=== PATIENT | female | born 1990 ===

== ENCOUNTER 2016-08-20 08:01 | Emergency (ER) | payer OTHER ==
[2016-08-20 08:10] VITALS: BMI 24.8
--- NOTE | 2016-08-20 08:42 | ED PDOC ---
HPI: Abdomen Chief Complaint (Provider): Abdominal pain History Per: Patient History/Exam Limitations: no limitations Onset/Duration Of Symptoms: Days (Pain started yesterday in morning.), Intermittent Episodes Outside of [place] travel?: No Current Symptoms Are (Timing): Other (No pain at this time.) Severity: Moderate Pain Scale Rating Of: 5 Location Of Pain/Discomfort: Other (Lower abdominal pain.) Quality Of Discomfort: Cramping Associated Symptoms: Other (No refers bleeding.). denies: Fever, Chills, Nausea , Vomiting, Back Pain, Chest Pain, Urinary Symptoms Exacerbating Factors: None Alleviating Factors: Rest Additional History Per: Patient Abnormal Vaginal Bleeding: No Last Menstral Period: Not Known. : 1 Para: 0 Miscarriage: 0 <Kyle Ortega - Last Filed: 08/20/16 12:34> <Debi Saldaña - Last Filed: 08/21/16 22:59> Time Seen by Provider: 08/20/16 08:17 Chief Complaint (Nursing): Abdominal Pain Additional Complaint(s): CC: Lower abdominal pain. HPI: 25 yo F patient without past medical history presents to the ED complaining of lower abdominal pain since yesterday in the morning, 06/18, intermittent, no radiated, no aggravating or alleviating symptoms. She denies pain now. Denies vaginal bleeding, fever, vomiting, nausea, urinary difficulties , headache, back pain, no recent injury or trauma. ROS: negative except as above. PMH: none. PSH: none. SH: denies smoking, alcohol or recreational drugs. 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 Meds: none. (Kyle Ortega) Past Medical History Reviewed: Nursing Documentation, Vital Signs - Medical History PMH: No Chronic Diseases - Surgical History Surgical History: No Surg Hx - Family History Family History: States: No Known Family Hx - Living Arrangements Living Arrangements: With Family - Social History Current smoker - smoking cessation education provided: No Alcohol: None Drugs: Denies - Immunization History Hx Tetanus Toxoid Vaccination: No Hx Influenza Vaccination: No Hx Pneumococcal Vaccination: No <Kyle Ortega - Last Filed: 08/20/16 12:34> <Debi Saldaña - Last Filed: 08/21/16 22:59> Vital Signs: Last Vital Signs Temp 97.9 F 08/20/16 12:14 Pulse 66 08/20/16 12:14 Resp 16 08/20/16 12:14 BP 99/60 L 08/20/16 12:14 Pulse Ox 98 08/20/16 12:40 - Home Medications Home Medications: Ambulatory Orders Medication Instructions Recorded Nitrofurantoin Macrocrystals 100 mg PO BID #14 cap 08/20/16 [Macrobid] - Allergies Allergies/Adverse Reactions: Allergies Allergy/AdvReac Type Severity Reaction Status Date / Time No Known Allergies Allergy Verified 08/20/16 08:24 Review of Systems ROS Statement: Except As Marked, All Systems Reviewed And Found Negative Constitutional: Negative for: Fever, Chills, Weakness, Malaise Eyes: Negative for: Pain, Vision Change ENT: Negative for: Ear Pain, Nose Pain, Mouth Pain, Throat Pain Cardiovascular: Negative for: Chest Pain, Palpitations Respiratory: Negative for: Cough, Shortness of Breath Gastrointestinal: Positive for: Abdominal Pain. Negative for: Nausea, Vomiting , Diarrhea Genitourinary Female: Negative for: Dysuria, Frequency, Vaginal Bleeding Musculoskeletal: Negative for: Neck Pain, Back Pain, Leg Pain Skin: Negative for: Rash Neurological: Negative for: Weakness, Numbness, Altered Mental Status Psych: Negative for: Anxiety, Depression <Kyle Ortega - Last Filed: 08/20/16 12:34> Physical Exam - Reviewed Nursing Documentation Reviewed: Yes Vital Signs Reviewed: Yes - Physical Exam Appears: Positive for: Well, No Acute Distress Head Exam: Positive for: ATRAUMATIC, NORMOCEPHALIC Skin: Positive for: Normal Color, Warm, Dry Eye Exam: Positive for: Normal appearance, EOMI, PERRL. Negative for: Nystagmus ENT: Positive for: Normal ENT Inspection Neck: Positive for: Normal, Supple Cardiovascular/Chest: Positive for: Regular Rate, Rhythm. Negative for: Murmur Respiratory: Positive for: Normal Breath Sounds Pulses-Carotid (L): 2+ Pulses-Carotid (R): 2+ Pulses-Dorsalis Pedis (L): 2+ Pulses-Dorsalis Pedis (R): 2+ Pulses-Femoral (L): 2+ Pulses-Femoral (R): 2+ Pulses-Post. Tibialis (L): 2+ Pulses-Post. Tibialis (R): 2+ Pulses-Radial (L): 2+ Pulses-Radial (R): 2+ Gastrointestinal/Abdominal: Positive for: Normal Exam, Bowel Sounds, Soft. Negative for: Tenderness Back: Positive for: Normal Inspection Extremity: Positive for: Normal ROM. Negative for: Tenderness, Pedal Edema Neurologic/Psych: Positive for: Alert, facility sales and admin II-XII, Oriented <Kyle Ortega - Last Filed: 08/20/16 12:34> - Laboratory Results Result Diagrams: 08/20/16 08:51 08/20/16 08:51 - ECG O2 Sat by Pulse Oximetry: 98 <Kyle Ortega - Last Filed: 08/20/16 12:34> - Laboratory Results Result Diagrams: 08/20/16 08:51 08/20/16 08:51 <Debi Saldaña - Last Filed: 08/21/16 22:59> - Progress ED Course And Treament: Impression: Lower abdominal pain. . Plan: CBC w/ diff CMP. URINALYSIS. Type and screen. Beta HCG, quantitative. Urine bacterial culture. US, obstetric. Reevaluated. (Kyle Ortega) Medical Decision Making <Kyle Ortega - Last Filed: 08/20/16 12:34> <Debi Saldaña - Last Filed: 08/21/16 22:59> Medical Decision Making: Impression: 25 yo F patient complaining of lower abdominal pain. Plan: CBC w/ Diff: WNL except Hgb- 11.9 CMP: WNL Urinalysis: positive for leukocyte esterase, RBC and large amount of squamous epith cells. Urine culture. Type and screen: A+, Ab negative. Beta HCG, quantitative. US, Obstetric: single intrauterine gestation of 20 weeks 4 days, no evidence of placenta previa, cervix long and close. Reevaluated. 1236: Patients feels good, no refers pain at this time. Labs consistent with UTI. Will discharge with treatment at home. (Kyle Ortega) pt also instructed to take vitamins (Debi Saldaña) Disposition - Patient ED Disposition Is Patient to be Admitted: No Counseled Patient/Family Regarding: Studies Performed, Diagnosis, Need For Followup, Rx Given - Disposition Disposition: Routine/Home Disposition Time: 12:39 <Kyle Ortega - Last Filed: 08/20/16 12:34> <Debi Saldaña - Last Filed: 08/21/16 22:59> - Clinical Impression Clinical Impression: UTI in - Disposition Referrals: [facility] [Outside] [facility] [Outside] Condition: IMPROVED Additional Instructions: follow up with your primary broke worker in 1-2 days return to the ED with any worsening or concerning symptoms. Prescriptions: Nitrofurantoin Macrocrystals [Macrobid] 100 mg PO BID #14 cap Instructions: Urinary Tract Infection in (ED) Print Language: MALAGASY
[2016-08-20 09:17] LABS: ALB/GLOB RATIO 1.2 (1.0-2.1); ALBUMIN 3.7 g/dL (3.5-5.0); ALT/SGPT 30 U/L (9-52); AST/SGOT 14 U/L (14-36); BLOOD UREA NITROGEN 10 mg/dl (7-17); GFR AFRICAN-AMERICAN > 60; GFR NON-AFRICAN AMERICAN > 60
[2016-08-20 09:27] LABS: SQUAMOUS EPITHIAL 20 /hpf (0-5); URINE BACTERIA RARE (<OCC); URINE BILIRUBIN NEGATIVE (NEGATIVE); URINE BLOOD NEGATIVE (NEGATIVE); URINE CLARITY CLOUDY (Clear); URINE COLOR YELLOW (YELLOW); URINE GLUCOSE (UA) NEG (Normal); URINE LEUKOCYTE ESTERASE LARGE Leu/uL (Negative); URINE NITRATE NEGATIVE (NEGATIVE); URINE PROTEIN NEGATIVE (NEGATIVE); URINE UROBILINOGEN 0.2-1.0 mg/dL (0.2-1.0)
[2016-08-20 09:30] LABS: BASO % 0.3 % (0.0-2.0); EOS # 0.1 K/uL (0.0-0.7); EOS % 1.6 % (0.0-4.0); HEMOGLOBIN 11.9 g/dL (12.0-16.0); LYMPH # 1.4 K/uL (1.0-4.3); LYMPH % 21.5 % (20.0-40.0); MEAN CELL VOLUME 87.6 fl (81.0-99.0); MEAN CORPUSCULAR HEMOGLOBIN 30.4 pg (27.0-31.0); MEAN CORPUSCULAR HGB CONC 34.7 g/dL (33.0-37.0); MEAN PLATELET VOLUME 8.3 fl (7.2-11.7); MONO # 0.4 K/uL (0.0-0.8); MONO % 5.7 % (0.0-10.0); NEUT # 4.6 K/uL (1.8-7.0); NEUT % 70.9 % (50.0-75.0); NRBC % 0.1 % (0.0-0.0); RBC 3.91 Mil/uL (3.80-5.20); RED CELL DISTRIBUTION WIDTH 13.9 % (11.5-14.5); WHITE BLOOD COUNT 6.4 K/uL (4.8-10.8)
--- NOTE | 2016-08-20 11:00 | US ---
PROCEDURE: Obstetrical ultrasound examination HISTORY: abd pain COMPARISON: Not available TECHNIQUE: Transabdominal FINDINGS: The examination demonstrates a single live intrauterine gestation. presentation is not specified. cardiac activity observed. heart rate 148 beats per minute. Normal posterior placenta identified. No evidence of placenta previa. Cervix closed and measures 4.3 cm in length. biometry yields a ultrasound age of 20 weeks 4 days. MICHAEL by ultrasound examination is 01/03/2017. No evaluation of anatomy was made at this time. Neither the right nor the left ovary are visualized. No adnexal masses are seen. There is no free fluid in the cul-de-sac. IMPRESSION: Single live intrauterine gestation of approximately 20 weeks 4 days gestational age. Posterior placenta. No evidence of placenta previa. Cervix long and closed. heart rate 148 beats per minute. Ovaries not visualized.
[2016-08-20 12:21] VITALS: BP 99/60; PULSE 66; RESP 16; TEMP 97.9
[2016-08-20 12:39] VITALS: O2SAT 98
== END 2016-08-20 12:30 | disposition home or self-care (01) ==
LOC: H.ER 08:01
DX: O23.42 Unspecified infection of urinary tract in pregnancy, second trimester (principal); Z3A.20 20 weeks gestation of pregnancy

== ENCOUNTER 2017-01-06 08:20 | Inpatient (IN) | payer MEDICAID, SELFPAY ==
[2017-01-06 08:47] VITALS: BMI 34.2
[2017-01-06] MEDS ORDERED: Lactated Ringer's 1,000 ML IV SCH (09:30)
[2017-01-06 09:46] LABS: BASO % 0.1 % (0.0-2.0); EOS # 0.1 K/uL (0.0-0.7); EOS % 1.1 % (0.0-4.0); HEMATOCRIT 36.1 % (34.0-47.0); LYMPH # 1.3 K/uL (1.0-4.3); LYMPH % 18.4 % (20.0-40.0); MEAN CELL VOLUME 82.3 fl (81.0-99.0); MEAN CORPUSCULAR HEMOGLOBIN 27.8 pg (27.0-31.0); MEAN CORPUSCULAR HGB CONC 33.7 g/dL (33.0-37.0); MEAN PLATELET VOLUME 8.2 fl (7.2-11.7); MONO # 0.4 K/uL (0.0-0.8); MONO % 6.2 % (0.0-10.0); NEUT # 5.4 K/uL (1.8-7.0); NEUT % 74.2 % (50.0-75.0); NRBC % 0.1 % (0.0-0.0); RED CELL DISTRIBUTION WIDTH 15.1 % (11.5-14.5); WHITE BLOOD COUNT 7.3 K/uL (4.8-10.8)
--- NOTE | 2017-01-06 17:23 | OBHP ---
Datetime: 01/06/2017 08:40 IP Adm Impression: Term, intrauterine ; No Active Labor; Ruptured Membranes IP Admit Plan: Admit to unit; Initiate labor induction protocol Admit Comment, IP Provider: 26 yr at 40.3 wks GA presents to L_D with complaint of rupture of m embranes when she was going to get out of bed today at 7:45am. Patient reports getting regular prenat al care at [facility], denies any complications with this . All ultrasounds were within marialuisa l limits. labs: + chlamydia in 2nd trimester, HepB neg, 3rd tri labs HIV neg, RPR neg, Gc/Ch neg/ne g, PPD neg, received Influenza and Tdap vaccine, GBS neg ObHx: started care at 23wks GA PMHx: none SurgHx: none FMHx: non contributory SocHx: denies smokiing, drinking or drugs Meds: none Allergies: NKDA PE: patient in no acute distress HEENT: normocephalic, atraumatic Cardiac: normal S1 S2, no murmurs/rubs or gallops Lungs: normal breathing pattern, clear to auscultation bilaterally Abd: nontender, nondistended Ext: +1 bilateral pitting edema SVE: cervix fingertip, station -3, pooling of clear membranes Monitoring: FHR 135 bpm, moderate variability 6-25 bpm, accelerations 15x15, no deceleration s A: 26 yr at 40.3 wks GA with clear ruptured membranes P: -Admit to labor and delivery -IV insertion, CBC, Type and screen -continuous monitoring -labor monitoring -patient may have breakfast, shower and ambulate Patient seen with Dr. Oakley, case discussed Genoveva Hill M.D. PGY2 OB Hospistlaist on-call...With PGY2, I saw and examined this patinet. IOL, pain managemnt, labor, delivey and care discussed with pt. Translators present. Her questions answered. MAHNDO Pelvic Type - PN: Adequate Extremities - PN: Normal Abdomen - PN: Normal Back - PN: Normal Lungs - PN: Normal Heart - PN: Normal Thyroid - PN: Normal Neurologic - PN: Normal HEENT - PN: Normal General - PN: Normal Presentation-Admit: Vertex FHR - Baseline A Provider: 135 Amniotic Fluid Color, Provider: Clear Membranes, Provider: Ruptured Gestation - Est Wks by US: 40.3 Pool Provider: Positive IP Hx Assessment: The History has been Reviewed and is Current Vital Signs Provider: Reviewed IP Indication for Induction: Not Applicable IP Chief Complaint: Uterine contractions; Suspected ruptured membranes NICHD Variability Prov Fetus A: Moderate 6-25bpm NICHD Accel Fetus A IP Provider: 15X15 FHR Category Provider Fetus A: Category I NICHD Decel Fetus A IP Provider: None Dilatation, Provider: fingertip Station, Provider: -3 Genitourinary Exam: Normal DTRs - PN: Normal
--- NOTE | 2017-01-06 17:26 | OBADHP ---
Datetime: 01/06/2017 08:40 Admit Comment, IP Provider: 26 yr at 40.3 wks GA presents to L_D with complaint of rupture of m embranes when she was going to get out of bed today at 7:45am. Patient reports getting regular prenat al care at [facility], denies any complications with this . All ultrasounds were within marialuisa l limits. labs: + chlamydia in 2nd trimester, HepB neg, 3rd tri labs HIV neg, RPR neg, Gc/Ch neg/ne g, PPD neg, received Influenza and Tdap vaccine, GBS neg ObHx: started care at 23wks GA PMHx: none SurgHx: none FMHx: non contributory SocHx: denies smokiing, drinking or drugs Meds: none Allergies: NKDA PE: patient in no acute distress HEENT: normocephalic, atraumatic Cardiac: normal S1 S2, no murmurs/rubs or gallops Lungs: normal breathing pattern, clear to auscultation bilaterally Abd: nontender, nondistended Ext: +1 bilateral pitting edema SVE: cervix fingertip, station -3, pooling of clear membranes Monitoring: FHR 135 bpm, moderate variability 6-25 bpm, accelerations 15x15, no deceleration s A: 26 yr at 40.3 wks GA with clear ruptured membranes P: -Admit to labor and delivery -IV insertion, CBC, Type and screen -continuous monitoring -labor monitoring -patient may have breakfast, shower and ambulate Patient seen with Dr. Oakley, case discussed Genoveva Hill M.D. PGY2 OB Hospistlaist on-call...With PGY2, I saw and examined this patinet. IOL, pain managemnt, labor, delivey and care discussed with pt. Translators present. Her questions answered. MAHNDO Pelvic Type - PN: Adequate Extremities - PN: Normal Abdomen - PN: Normal Back - PN: Normal Lungs - PN: Normal Heart - PN: Normal Thyroid - PN: Normal Neurologic - PN: Normal HEENT - PN: Normal General - PN: Normal Presentation-Admit: Vertex FHR - Baseline A Provider: 135 Amniotic Fluid Color, Provider: Clear Membranes, Provider: Ruptured Gestation - Est Wks by US: 40.3 Pool Provider: Positive IP Hx Assessment: The History has been Reviewed and is Current Vital Signs Provider: Reviewed IP Chief Complaint: Uterine contractions; Suspected ruptured membranes NICHD Variability Prov Fetus A: Moderate 6-25bpm NICHD Accel Fetus A IP Provider: 15X15 FHR Category Provider Fetus A: Category I NICHD Decel Fetus A IP Provider: None Dilatation, Provider: fingertip Station, Provider: -3 Genitourinary Exam: Normal DTRs - PN: Normal IP Adm Impression: Term, intrauterine ; No Active Labor; Ruptured Membranes IP Admit Plan: Admit to unit; Initiate labor induction protocol
[2017-01-06] MEDS ORDERED: Nalbuphine 20 mg/ml Inj (1 ml) IVP PRN (20:06)
[2017-01-07] MEDS ORDERED: Oxytocin 30 UNITS in Sodium Chloride 0.9% 500 ML IV ONE (09:31)
[2017-01-07] MEDS: Lactated Ringer's 1,000 ML IV SCH ×2 (09:43→18:14)
[2017-01-07] MEDS ORDERED: Lactated Ringer's 1,000 ML IV SCH (09:45)
[2017-01-08] MEDS ORDERED: ceFAZolin IV 1 gm in Dextrose 1 GM/50 ML BAG IVPB ONE (00:42)
[2017-01-08] MEDS ORDERED: Oxytocin 30 UNITS in Sodium Chloride 0.9% 500 ML IV ONE ×2 (00:47→09:22)
[2017-01-08] MEDS ORDERED: ceFAZolin IV 2 gm in Dextrose 2 GM/50 ML BAG IVPB ONE ×2 (00:53→09:45)
--- NOTE | 2017-01-08 00:56 | OBPN ---
Datetime: 01/07/2017 20:03 IP Progress Note Comment: Patient noted to make no cervical change the patient was advised for opera tive delivery patient declined patient wanted to think about it. We discussed risks benefits and alte rnatives to surgery the patient was informed of the risk of bleeding infection or injury to bowel beth dder or ureter and blood transfusion. The patient was informed of the risk to the baby shoulder dysto magy neurological injury potentially . Patient opted for further observation Dilatation, Provider: 5 Effacement, Provider: 75 Station, Provider: -2 Datetime: 01/07/2017 07:59 IP Progress Impression: Normal progression of labor IP Progress Plan: Continue present management FHR - Baseline A Provider: 125 Vital Signs Provider: Reviewed; Within Normal Limits NICHD Accel Fetus A IP Provider: 15X15 FHR Category Provider Fetus A: Category I NICHD Variability Prov Fetus A: Moderate 6-25bpm Datetime: 01/06/2017 08:40 Pool Provider: Positive Membranes, Provider: Ruptured Amniotic Fluid Color, Provider: Clear Gestation - Est Wks by US: 40.3 Presentation-Admit: Vertex NICHD Decel Fetus A IP Provider: None
--- NOTE | 2017-01-08 01:14 | OBPN ---
Datetime: 01/08/2017 00:56 IP Progress Note Comment: Patient examined cervical exam unchanged patient currently 5 cm 75 per per cent effaced -2 discussed the need for operative delivery discussed risks benefits alternatives to th e surgery discussed the risk of bleeding infection organ injury to bowel bladder or ureter. The nat montes was informed of the risks of the fetus shoulder dystocia neurological injury . Patient kumar t would like to wait for family members sisters to arrive
--- NOTE | 2017-01-08 01:41 | OBPN ---
Datetime: 01/08/2017 01:23 IP Progress Note Comment: Discussed plan of care with patient and partner of her sisters and Jess. T he patient was advised for operative delivery the patient was informed of the risks benefits and alte rnatives of the surgery the patient was informed of the risks to the baby including shoulder dystocia neurological injury . Patient declined operative intervention patient consulted with her family and after approximately 1 hour of deliberation patient declined medical treatment. The patient expre ssed understanding and was given the opportunity ask questions and all questions are answered patient 's wishes respected. The patient signed a refusal of care
[2017-01-08] MEDS: Lactated Ringer's 1,000 ML IV SCH (06:11)
[2017-01-08] MEDS ORDERED: Oxycodone/Acetaminophen 5/325 mg Tab PO PRN ×3 (10:11→14:44)
--- NOTE | 2017-01-08 10:14 | OBPN ---
Datetime: 01/08/2017 10:10 IP Progress Impression: Arrest of dilatation/descent IP Informed Consent Obtain: Section Delivery; Risks, Benefits and Alternatives Discussed IP Procedures: Sterile Vag Exam IP Progress Plan: Deliver- Section Contraction Comments Provider: q5-6min FHR - Baseline A Provider: 130s IP Progress Note Comment: Patient with no cervical change. Discussed with patient options. Recommend ed delivery due to arrest of dilatation as well as prolonged rupture of membranes. Discusse d with patient the risks, benefits, alternatives of . QUESTIONS answered, and patient consen mary kate for delivery. Maternal well-being and well-being reassuring at this time. Anesthe anjelica notified. Vital Signs Provider: Reviewed; Within Normal Limits NICHD Accel Fetus A IP Provider: 15X15 FHR Category Provider Fetus A: Category I NICHD Variability Prov Fetus A: Moderate 6-25bpm Dilatation, Provider: 5 Effacement, Provider: 90 Station, Provider: -1 NICHD Decel Fetus A IP Provider: None
[2017-01-08] MEDS ORDERED: ePHEDrine 50 mg/ml Inj ONE (10:17)
[2017-01-08] MEDS ORDERED: Morphine 1 mg/ml preservative-free Inj(Duramorph) ONE (10:17)
[2017-01-08] MEDS ORDERED: Phenylephrine 10 mg/ml Inj ONE (10:18)
[2017-01-08] MEDS ORDERED: Lactated Ringer's 1,000 ML IV SCH (14:44)
[2017-01-09] MEDS: Oxycodone/Acetaminophen 5/325 mg Tab PO PRN ×2 (06:02→14:25)
--- NOTE | 2017-01-09 07:15 | OBPPN ---
Datetime: 01/09/2017 06:34 PP Pain Prov: Within normal limits PP Nausea Prov: Denies PP Flatus Prov: No PP BM Prov: No PP Heart Prov: Normal PP Lungs Prov: Normal PP Abdomen/Uterus Prov: Normal PP Lochia Prov: Normal PP Vulva/Perineum Prov: Normal PP Extremities Prov: Normal PP Progress Prov: Normal PP Comments Phys Exam Prov: Dressing is clean and dry PP Impression Prov: Normal progression PP Plan Prov: Continue present management PP Progress Note Prov: POD1 S: pt seen and examined bedside this AM, comfortable in bed. s/p . No complains or acute event overnight. Pt admits pain. Pt is not yet ambulating. will advance diet to regular this AM. Loc hia wnl, like menses. No BM or passing gas. Patient is . Will remove Griffiths this m orning. Denies fever, chills, headache, chest pain, dyspnea, palpitations, n/v/d/c and remains afebri le. O: VS stable GEN: AA, NAD Cardio: S1S2 no M/G/R Resp: vesicular breathing b/l Abdomen: Dressing looks clean and dry Fundus @ the umbilicus and firm. BS- Neuro: AAO x 3 Ext: no edema noted, no calf tenderness Assessment/Plan: 26 y/o Femal, , delivered at 40.3 wks, female infant via on 01/08/17. Doing well POD 1. OOB with caution Encouraged ambulation and SCD's for DVT prophylaxis Percocet 5/325mg 1-2 tablets po q6 for mod/sev pain Ibuprofen for mild-mod pain Senakot 17.2mg PO qHS Will remove dressing this afternoon, d/c griffiths Will follow up post op CBC today --- Jamila Chiu, PGY-1 OB Hospitalist Addendum: Pt seen and examined by me. Agree w/ above. POD 1 s/p primary c/s for arrest of dilation, doing well, breast and bottle feeding. Incision w/ clean, dry bandage in place. (ES) IP PP Procedures: None Vital Signs Provider PP: Reviewed; Within Normal Limits
[2017-01-09 07:36] LABS: BASO % 0.2 % (0.0-2.0); EOS % 0.3 % (0.0-4.0); HEMATOCRIT 32.8 % (34.0-47.0); LYMPH # 0.9 K/uL (1.0-4.3); LYMPH % 9.6 % (20.0-40.0); MEAN CELL VOLUME 83.1 fl (81.0-99.0); MEAN CORPUSCULAR HEMOGLOBIN 27.9 pg (27.0-31.0); MEAN CORPUSCULAR HGB CONC 33.6 g/dL (33.0-37.0); MEAN PLATELET VOLUME 7.8 fl (7.2-11.7); MONO # 0.5 K/uL (0.0-0.8); MONO % 5.1 % (0.0-10.0); NEUT # 8.2 K/uL (1.8-7.0); NEUT % 84.8 % (50.0-75.0); PLATELET COUNT 186 K/uL (130-400); RED CELL DISTRIBUTION WIDTH 15.3 % (11.5-14.5); WHITE BLOOD COUNT 9.7 K/uL (4.8-10.8)
--- NOTE | 2017-01-09 08:40 | OBDS ---
DELIVERY PERSONNEL Delivery Doctor: David Mendez MD Senior Master Scheduler: Karina Spangler RN Anesthesiologist: Dr Andrews Resident: Dr Davian Pop MATERNAL INFORMATION Delivery Anesthesia: Spinal Medications in Delivery: Pitocin, Ancef Estimated Blood Loss (ml): 800 Placenta Cultured: No Maternal Complications: None RN Comments: pt delivered viable infant girl via primary c section, secondary to arrest of dilatatio n. infant was clamped and brought to warmer, examined by Dr Green. apgars were 9 and 9. infant brought to mother for bonding. remained ni stable condition. patient tolerated section well. transferred to labor and delivery to recover in stable condition. Provider Comments: Primary low flap transverse section via Pfannenstiel incision. A viable infant with Apgars of 9 and 9 at one and 5 minutes respectively. Placenta delivered spontaneously. No rmal uterus, normal tubes and ovaries bilaterally. Estimated blood loss 800 mL Urine output 200 mL of clear urine Fluids 1200 mL lactated Ringer's No complications LABOR SUMMARY EDC: 01/03/2017 00:00 No. Babies in Womb: 1 Attempted: No Labor Anesthesia: None LABOR INFORMATION Reason for Induction: Not Applicable Onset of Labor: 01/07/2017 08:00 Cervical Ripening Agents: Cytotec @ Oxytocin: Augmentation Group B Beta Strep: Negative Steroids Given: None Reason Steroids Not Administered: Not Applicable MEMBRANES Membranes Rupture Method: Spontaneous Rupture of Membranes: 01/06/2017 08:00 Length of Rupture (hrs): 50.78 Amniotic Fluid Color: Clear Amniotic Fluid Amount: Moderate Amniotic Fluid Odor: Normal STAGES OF LABOR Stage 3 hrs: 0 Stage 3 min: 2 Total Time in Labor hrs: 26 Total Time in Labor min: 49 CSECTION DELIVERY Primary Indication: Secondary Arrest of Dilatation CSection Urgency: Non Elective CSection Incidence: Primary Labor: Labor Elective: Nonelective CSection Incision: Lower Uterine Transverse Uterine Closure: Single-layer closure BABY A INFORMATION Delivery Date/Time: 01/08/2017 10:47 Method of Delivery: Born in Route : No : N/A Forceps: N/A Vacuum Extraction: N/A Shoulder Dystocia : No SHOULDER DYSTOCIA BABY A Infant Delivery Date/Time: 01/08/2017 10:47 PRESENTATION/POSITION BABY A Presentation: Cephalic PLACENTA INFORMATION BABY A Placenta Delivery Time : 01/08/2017 10:49 Placenta Method of Delivery: Manual Removal Placenta Status: Delivered SCORES BABY A Heart Rate 1 min: >100 bpm Resp Effort 1 min: Good Cry Reflex Irritability 1 min: Cough or Sneeze or Pulls Away Muscle Tone 1 min: Active Motion Color 1 min: Body [place], Extremities Blue Resuscitation Effort 1 min: N/A SCORE 1 MIN: 9 Heart Rate 5 min: >100 bpm Resp Effort 5 min: Good Cry Reflex Irritability 5 min: Cough or Sneeze or Pulls Away Muscle Tone 5 min: Active Motion Color 5 min: Body [place], Extremities Blue Resuscitation Effort 5 min: N/A SCORE 5 MIN: 9 INFANT INFORMATION BABY A Gestational Age at Delivery: 40.5 Gestational Status: Term Outcome : Liveborn Infant Condition : Stable Sex: Female IDENTIFICATION/MEDS BABY A ID Band Number: [id number] ID Band Location: Left Leg; Left Arm WEIGHT/LENGTH BABY A Birthweight (gms): 4100 Weight (lb): 9 Weight (oz): 1 CORD INFORMATION BABY A No. Cord Vessels: 3 Nuchal Cord : Around Neck x2, Loose Cord Blood Taken: Yes Suction: Mouth
[2017-01-09] MEDS: Multivitamin With Minerals Tab PO SCH (08:56)
[2017-01-09] MEDS ORDERED: Multivitamin With Minerals Tab PO SCH (09:00)
[2017-01-09 14:27] LABS: EOSINOPHIL 1 % (0-7); NEUTROPHIL 83 % (42-75); TOTAL CELLS COUNTED 100
[2017-01-09 14:28] LABS: LARGE PLATELETS PRESENT
[2017-01-10] MEDS: Multivitamin With Minerals Tab PO SCH (08:47)
--- NOTE | 2017-01-10 09:50 | OBPPN ---
Datetime: 01/10/2017 07:05 PP Pain Prov: Within normal limits PP Nausea Prov: Denies PP Flatus Prov: Yes PP BM Prov: No PP Heart Prov: Normal PP Lungs Prov: Normal PP Abdomen/Uterus Prov: Normal PP Lochia Prov: Normal PP Extremities Prov: Normal PP Progress Prov: Normal PP Comments Phys Exam Prov: Incision: clean, dry and intact. no induration, erythema or fluctuation. no dehiscence PP Impression Prov: Normal progression PP Plan Prov: Continue present management PP Progress Note Prov: POD2 S: pt seen and examined bedside this morning. S/p on POD 2. No acute event overnight. Pt reports mild pelvic pain, controlled with pain meds. Pt is ambulating w/o dizziness. Tolerating PO . Lochia wnl, like menses. No BM but passing gas. Patient is doing both /bottle feeding . Denies headache, dizziness, nausea, vomiting, fever, chills,chest pain, dyspnea or calf pain. PE: General: A_O, resting comfortably in bed, NAD HEENT: oral mucosa moist. supple neck. Lungs: CTA B/L, no wheezing, rhonchi or rales CVS: RRR, normal S1, S2. ABD: +BS, non-tender, non-rebound tenderness Incision: clean, dry and intact. no induration, erythema or fluctuation. no dehiscence Back: No CVA tenderness EXT: no edema, negative Fifi's sign Neuro/psych: AAOX3 Assessment/Plan: 26 y/o , delivered at 40.3 wks, female via on 01/08/17. Doing well POD2. Encouraged ambulation and SCD's for DVT prophylaxis Percocet 5/325mg 1-2 tablets po q6 for mod/sev pain Ibuprofen for mild-mod pain Senakot 17.2mg PO qHS Anticipate discharge tomorrow. Sultan Davey, PGY-1 OB Hospitalist on-call : On rounds this morning, I saw and examined this patient. Agree with note . TONY Vital Signs Provider PP: Reviewed
[2017-01-11] MEDS ORDERED: Clindamycin 600mg/50ml NS 600 MG/50 ML BAG IVPB SCH (07:00)
--- NOTE | 2017-01-11 07:26 | OBPPN ---
Datetime: 01/11/2017 07:10 PP Progress Note Prov: LAte entry for last night 20:00pm On Jan 10, 18:00pm, I was notified by Dr Montalvo that Aditi had Temp 101 for which Motrin was gi vne at 16:00pm. Afterwards, Temp retaken and was 99. She was seen and examined - no signs/symptoms of infection. PLAN: monitor temp/signs of infectoin. She had C/S for failed progression - SROM > 24h.
--- NOTE | 2017-01-11 08:31 | OBPPN ---
Datetime: 01/11/2017 08:24 PP Pain Prov: Within normal limits PP Nausea Prov: Denies PP Flatus Prov: Yes PP BM Prov: Yes PP Abdomen/Uterus Prov: Normal PP Lochia Prov: Normal PP Extremities Prov: Normal PP C/S Incision Prov: Normal PP Progress Prov: Normal PP Impression Prov: Normal progression PP Progress Note Prov: POD 3s/p primary c/s for arrest of dilation, doing well, breast and bottle fe eding Pt may be discharged home later today if afebrile for 24 hours Vital Signs Provider PP: Reviewed
[2017-01-11] MEDS: Multivitamin With Minerals Tab PO SCH (09:45)
--- NOTE | 2017-01-11 16:27 | OBDCSUM ---
Datetime: 01/11/2017 11:04 Discharged to, Provider: Home Follow up at, Provider: OB Disch Instr Activity: Normal activity; May be up to bathroom; May be up for meals; May Shower Disch Instr Diet: Regular Discharge Instructions, Provider: Routine instructions given Discharge Diagnosis, Provider: Term Delivered Discharge Time: 01/11/2017 11:04 Follow up in weeks, Provider: 1 week incision check , 6 weeks check Disch Referrals: None Contraception discussed, Prov: No Disch Activity Restrictions: No lifting; Minimize stair-climbing; No sexual activity; Nothing in vag osvaldo - [place], tampons, douche
[2017-01-11 21:54] VITALS: BP 114/70; PULSE 105; RESP 20; TEMP 97.6; O2SAT 98
== END 2017-01-11 17:15 | disposition home or self-care (01) | DRG 371 ==
LOC: H.EROB2 08:20 → H.L&D 09:28 → H.OB/GYN 01-08 16:08
PROVIDERS: ADMIT Obstetrics & Gynecology; ATTEND Obstetrics & Gynecology
PROC: 4A1HXCZ Monitoring of Products of Conception, Cardiac Rate, External Approach (ICD-10-PCS; 2017-01-06)
PROC: 10D00Z1 Extraction of Products of Conception, Low, Open Approach (ICD-10-PCS; principal; 2017-01-08)
DX: O69.81X0 Labor and delivery complicated by cord around neck, without compression, not applicable or unspecified (principal); O42.92 Full-term premature rupture of membranes, unspecified as to length of time between rupture and onset of labor; Z37.0 Single live birth; O62.0 Primary inadequate contractions; O62.1 Secondary uterine inertia; O66.0 Obstructed labor due to shoulder dystocia; Z3A.40 40 weeks gestation of pregnancy

== ENCOUNTER 2017-01-15 19:52 | Inpatient (IN) | payer SELFPAY ==
[2017-01-15 19:52] VITALS: BMI 34.2
--- NOTE | 2017-01-15 20:52 | ED PDOC ---
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 [facility] and she states yesterday there was no drainage. Patient states that today she noticed yellow drainage from the wound. She denies fever or chills. Patient does have mild pain to the affected area. Patient is currently breast-feeding but is supplementing with formula. Past Medical History Reviewed: Historical Data, Nursing Documentation, Vital Signs Vital Signs: Last Vital Signs Temp 98.0 F 01/15/17 20:05 Pulse 85 01/15/17 20:05 Resp 16 01/15/17 20:05 BP 117/77 01/15/17 20:05 Pulse Ox 100 01/15/17 21:20 - Medical History PMH: No Chronic Diseases - Surgical History Surgical History: - Family History Family History: States: No Known Family Hx - Living Arrangements Living Arrangements: With Family - Social History Current smoker - smoking cessation education provided: No Alcohol: None Drugs: Denies - Home Medications Home Medications: Ambulatory Orders Medication Instructions Recorded Ibuprofen [Motrin Tab] 600 mg PO Q6 PRN #30 tab 01/11/17 Sennosides A and B [Senokot Tab] 17.2 mg PO HS #20 tab 01/11/17 oxyCODONE/Acetaminophen [Percocet 1 ea PO Q6 PRN #15 tab 01/11/17 5/325 mg Tab] - Allergies Allergies/Adverse Reactions: Allergies Allergy/AdvReac Type Severity Reaction Status Date / Time No Known Allergies Allergy Verified 01/15/17 20:05 Review of Systems ROS Statement: Except As Marked, All Systems Reviewed And Found Negative Constitutional: Negative for: Fever, Chills Gastrointestinal: Positive for: Abdominal Pain Genitourinary Female: Positive for: Other (drainage from incision) Physical Exam - Reviewed Nursing Documentation Reviewed: Yes Vital Signs Reviewed: Yes - Physical Exam Appears: Positive for: Well Skin: Negative for: Rash Eye Exam: Positive for: Normal appearance Cardiovascular/Chest: Positive for: Regular Rate, Rhythm Respiratory: Positive for: Normal Breath Sounds Gastrointestinal/Abdominal: Positive for: Other (Yellow drainage noted from C- section incision, Steri-Strips are in place, there is erythema and warmth surrounding the surgical wound is noted with mild tenderness, no rebound or guarding) Back: Negative for: L CVA Tenderness, R CVA Tenderness Extremity: Positive for: Normal ROM Neurologic/Psych: Positive for: Alert, Oriented - Laboratory Results Result Diagrams: 01/15/17 21:21 01/15/17 21:21 - ECG O2 Sat by Pulse Oximetry: 100 Pulse Ox Interpretation: Normal - Other Rad CT abd and pelvis with IV contrast X-Ray: Read By Radiologist X-Ray Interpretation: see below Medical Decision Making Medical Decision Makin female with drainage from incision. Plan: CBC CMP Blood cultures Wound culture IVF PO motrin Patient was seen at bedside by OB nutrition partner, Dr. Mendez. He states to order CT abdomen and pelvis with IV contrast and admit patient. IV Zosyn ordered along with IV fluids. Patient is aware of and agrees with admission. CT: FINDINGS: Lower thorax: There is minimal bibasilar atelectasis. ABDOMEN: Liver: There are no focal liver lesions present. Gallbladder and bile ducts: The gallbladder is normal. No calcified stones. No ductal dilation. Pancreas: The pancreas is normal. No ductal dilation. Spleen: The spleen is normal. Adrenals: The adrenal glands are normal. Kidneys and ureters: The kidneys are normal. No hydronephrosis. Stomach and bowel: Stomach is decompressed. Colonic constipation is present. There is no evidence of intestinal obstruction. No mucosal thickening. Appendix: No findings to suggest acute appendicitis. PELVIS: Bladder: Bladder is decompressed. Reproductive: 2.6 CM hypodense lesion of the left adnexa may represent complex or hemorrhagic cyst. If indicated, this could be further evaluated with pelvic sonogram. Uterus is enlarged compatible with a post gravid state of the patient. ABDOMEN and PELVIS: Intraperitoneal space: There is no evidence of free intraperitoneal fluid. No free air. Bones/joints: No acute fracture. No dislocation. Soft tissues: There are postoperative changes at the lower anterior abdominal wall compatible with the known history of recent . No evidence for substantial fluid collection in the vicinity. Vasculature: The aorta is normal. No abdominal aortic aneurysm. Lymph nodes: There is no evidence of lymphadenopathy. Other findings: There are a few intraperitoneal gas bubbles compatible with postoperative state of patient. IMPRESSION: 1. 2.6 CM hypodense lesion of the left adnexa may represent complex or hemorrhagic cyst. If indicated, this could be further evaluated with pelvic sonogram. 2. There are postoperative changes at the lower anterior abdominal wall compatible with the known history of recent . No evidence for substantial fluid collection in the vicinity. 3. Additional incidental and/or chronic findings as described. Disposition - Clinical Impression Clinical Impression: Surgical site infection, Cellulitis - Patient ED Disposition Is Patient to be Admitted: Yes - Disposition Disposition Time: 21:19 Condition: FAIR - Pt Status Changed To: Hospital Disposition Of: Observation - POA Present On Arrival: None Results - Lab Results Lab Results: 01/15/17 01/15/17 21:21 21:21 WBC 13.0 H RBC 4.47 Hgb 12.3 Hct 37.3 MCV 83.4 MCH 27.6 MCHC 33.1 RDW 15.1 H Plt Count 392 D MPV 6.6 L Neut % (Auto) 85.8 H Lymph % (Auto) 9.7 L Rolette % (Auto) 3.5 Eos % (Auto) 0.7 Baso % (Auto) 0.3 Neut # 11.2 H Lymph # 1.3 Rolette # 0.5 Eos # 0.1 Baso # 0.0 Neutrophils % (Manual) 82 H Band Neutrophils % 2 Lymphocytes % (Manual) 10 L Monocytes % (Manual) 4 Eosinophils % (Manual) 2 Toxic Granulation Present Platelet Estimate Normal Hypochromasia (manual) Slight Anisocytosis (manual) Slight Microcytosis (manual) Slight Sodium 141 Potassium 4.0 Chloride 103 Carbon Dioxide 26 Anion Gap 16 BUN 14 Creatinine 0.6 L Est GFR ( Amer) > 60 Est GFR (Non-Af Amer) > 60 Random Glucose 85 Calcium 9.6 Total Bilirubin 0.7 AST 36 ALT 43 Alkaline Phosphatase 175 H Total Protein 7.5 Albumin 3.7 Globulin 3.8 Albumin/Globulin Ratio 1.0
[2017-01-15] MEDS ORDERED: Sodium Chloride 0.9% 1,000 ML IV STA (21:13)
[2017-01-15] MEDS ORDERED: Piperacillin/Tazobact 3.375 gm Inj IVPB STA (21:13)
[2017-01-15] MEDS ORDERED: Piperacillin/Tazobact 3.375 GM in Sodium Chloride 0.9% 100 ML IVPB SCH (21:30)
[2017-01-15 21:41] LABS: BASO % 0.3 % (0.0-2.0); EOS # 0.1 K/uL (0.0-0.7); EOS % 0.7 % (0.0-4.0); HEMATOCRIT 37.3 % (34.0-47.0); LYMPH # 1.3 K/uL (1.0-4.3); LYMPH % 9.7 % (20.0-40.0); MEAN CELL VOLUME 83.4 fl (81.0-99.0); MEAN CORPUSCULAR HEMOGLOBIN 27.6 pg (27.0-31.0); MEAN CORPUSCULAR HGB CONC 33.1 g/dL (33.0-37.0); MEAN PLATELET VOLUME 6.6 fl (7.2-11.7); MONO # 0.5 K/uL (0.0-0.8); MONO % 3.5 % (0.0-10.0); NEUT # 11.2 K/uL (1.8-7.0); NEUT % 85.8 % (50.0-75.0); PLATELET COUNT 392 K/uL (130-400); RED CELL DISTRIBUTION WIDTH 15.1 % (11.5-14.5)
[2017-01-15 22:10] LABS: ALKALINE PHOSPHATASE 175 U/L (38-126); ALT/SGPT 43 U/L (9-52); AST/SGOT 36 U/L (14-36); BILIRUBIN,TOTAL 0.7 mg/dl (0.2-1.3); BLOOD UREA NITROGEN 14 mg/dl (7-17); CALCIUM 9.6 mg/dL (8.4-10.2); CARBON DIOXIDE 26 mmol/L (22-30); CHLORIDE 103 mmol/L (98-107); GFR AFRICAN-AMERICAN > 60; GLUCOSE,RANDOM 85 mg/dL (65-105); SODIUM 141 mmol/l (132-148); TOTAL PROTEIN 7.5 G/DL (6.3-8.2)
[2017-01-15] MEDS ORDERED: Iohexol 300 100 ML IJ ONE (22:28)
[2017-01-15 22:29] LABS: EOSINOPHIL 2 % (0-7); NEUTROPHIL 82 % (42-75); TOTAL CELLS COUNTED 100
--- NOTE | 2017-01-15 22:34 | CP.PCM.HP ---
<Sultan Petar - Last Filed: 01/15/17 23:16> History of Present Illness - History of Present Illness History of Present Illness: 26 yo s/p on 01/08/2017 presents to the ED complaining of drainage from surgical wound. Pt states she noticed yellow discharge coming from right sided abdominal wound at 5:00 pm today. Pt states the deng from her incision were removed on Thursday01/11/17 before her discharge. Pt went to the [facility] for a wound check yesterday and was started on Keflex 500 mg BID but states there was no discharge then. Pt has taken one keflex this morning. Pt admits to feeling chills today prior to noticing the discharge. Denies fever , nausea, vomiting, chest pain, dyspnea, headache, dizziness or blurry vision. PMH: Denies Medications: Ibuprofen 600 mg PO Q6 PRN, Senokot 17.2 mg PO HS, Percocet 5/325 mg Tab 1 ea PO Q6 PRN, PNV. Keflex 500 mg 1 dose this AM. Social hx: denies alcohol, tobacco, recreational drug use [employer]: , on 01/08/2017. No hx of abnormal PAP. Hx chalmydia on 09/18/16 and treated. PSH: on 01/08/2017 Family hx: denies family hx DMII, HTN, CAD or CA. Allergies: NKDA ED Course: Vitals: BP 117/77, P 85, RR 16, T 98.0 F, Pulse ox 100% CBC CMP Blood cultures Wound culture IVF PO motrin Zosyn 3.[address] of the abdomen and pelvis w/ IV contrast. Present on Admission - Present on Admission Any Indicators Present on Admission: Yes Review of Systems - Constitutional Constitutional: Chills. absent: Fever - Cardiovascular Cardiovascular: absent: Chest Pain, Dyspnea, Edema - Respiratory Respiratory: absent: Cough, Dyspnea - Gastrointestinal Gastrointestinal: absent: Constipation, Diarrhea, Nausea, Vomiting - Musculoskeletal Musculoskeletal: absent: Back Pain, Neck Pain - Integumentary Integumentary: absent: Rash Past Patient History - Past Social History Alcohol: None Drugs: Denies - CARDIAC Hx Hypertension: No - PSYCHIATRIC Hx Depression: No - SURGICAL HISTORY Hx Surgeries: No - ANESTHESIA Hx Anesthesia: No Meds Allergies/Adverse Reactions: Allergies Allergy/AdvReac Type Severity Reaction Status Date / Time No Known Allergies Allergy Verified 01/15/17 20:05 Physical Exam - Constitutional Appears: Non-toxic, No Acute Distress - Head Exam Head Exam: ATRAUMATIC, NORMOCEPHALIC - Respiratory Exam Respiratory Exam: Clear to Auscultation Bilateral. absent: Rales, Rhonchi, Wheezes - Cardiovascular Exam Cardiovascular Exam: REGULAR RHYTHM, RRR, +S1, +S2. absent: Systolic Murmur - GI/Abdominal Exam GI & Abdominal Exam: Normal Bowel Sounds, Soft. absent: Guarding Additional comments: Clear to yellowish drainage from the right sided surgical site in the lower abdomen seen. Some erythema and minimal swelling on the site site noted. Steri strips are intact. No guarding or rebound tenderness. - Extremities Exam Extremities exam: Positive for: normal capillary refill, normal inspection, pedal pulses present. Negative for: calf tenderness, pedal edema - Neurological Exam Neurological exam: Alert, Oriented x3 - Psychiatric Exam Psychiatric exam: Normal Affect, Normal Mood Results - Vital Signs Recent Vital Signs: Last Vital Signs Temp 98.0 F 01/15/17 20:05 Pulse 85 01/15/17 20:05 Resp 16 01/15/17 20:05 BP 117/77 01/15/17 20:05 Pulse Ox 100 01/15/17 21:20 - Labs Result Diagrams: 01/15/17 21:21 01/15/17 21:21 Labs: Laboratory Results - last 24 hr 01/15/17 01/15/17 21:21 21:21 WBC 13.0 H RBC 4.47 Hgb 12.3 Hct 37.3 MCV 83.4 MCH 27.6 MCHC 33.1 RDW 15.1 H Plt Count 392 D MPV 6.6 L Neut % (Auto) 85.8 H Lymph % (Auto) 9.7 L [place] % (Auto) 3.5 Eos % (Auto) 0.7 Baso % (Auto) 0.3 Neut # 11.2 H Lymph # 1.3 [place] # 0.5 Eos # 0.1 Baso # 0.0 Neutrophils % (Manual) 82 H Band Neutrophils % 2 Lymphocytes % (Manual) 10 L Monocytes % (Manual) 4 Eosinophils % (Manual) 2 Toxic Granulation Present Platelet Estimate Normal Hypochromasia (manual) Slight Anisocytosis (manual) Slight Microcytosis (manual) Slight Sodium 141 Potassium 4.0 Chloride 103 Carbon Dioxide 26 Anion Gap 16 BUN 14 Creatinine 0.6 L Est GFR ( Amer) > 60 Est GFR (Non-Af Amer) > 60 Random Glucose 85 Calcium 9.6 Total Bilirubin 0.7 AST 36 ALT 43 Alkaline Phosphatase 175 H Total Protein 7.5 Albumin 3.7 Globulin 3.8 Albumin/Globulin Ratio 1.0 Assessment & Plan - Assessment and Plan (Free Text) Assessment: 26 yo s/p on 01/08/17 admitted to [facility] for infected wound w/ drainage. Plan: Infected surgical wound w/ drainage -Start ampicillin 2 gm IVP q4hrs -Start gentamicin 80mg/50mls IVPB Q8hrs -Start clindamycin 900mg IVPB Q8rhs -Received 1 dose of zosyn 3.75gm in ED -CBC: 13>12.3/37.3<392 -Stable vitals: BP 117/77, P 85, RR 16, T 98.0 F, pulse ox 100% -CT of abdomen and pelvis: - 2.6 cm hypodense lesion of the left adnexa may represent complex or hemorrhagic cyst. If indicated, this could be further evaluated with pelvic sonogram. -There are postoperative changes at the lower anterior abdominal wall compatible with the known hx of recent . No evidence for substantial fluid collection in the vicinity. -Blood cx and wound cx sent from ED -F/u on lactic acid -F/u on procalcitonin -Pain management w/ ibuprofen and percocet DVT prophylaxis: -SCD'S Diet: Regular diet Case d/w on-call OB hospitalist Dr. Mendez. Sultan Davey, PGY1 <Luc Mendez - Last Filed: 01/16/17 08:41> Results - Vital Signs Recent Vital Signs: Last Vital Signs Temp 97.4 F L 01/16/17 08:34 Pulse 68 01/16/17 08:34 Resp 18 01/16/17 08:34 BP 101/66 01/16/17 08:34 Pulse Ox 99 01/16/17 08:34 - Labs Result Diagrams: 01/16/17 06:30 01/15/17 21:21 Labs: Laboratory Results - last 24 hr 01/15/17 01/15/17 01/16/17 21:21 21:21 06:30 WBC 13.0 H 9.3 RBC 4.47 4.06 Hgb 12.3 11.1 L Hct 37.3 34.1 MCV 83.4 83.9 MCH 27.6 27.3 MCHC 33.1 32.5 L RDW 15.1 H 15.1 H Plt Count 392 D 354 MPV 6.6 L 6.6 L Neut % (Auto) 85.8 H 76.7 H Lymph % (Auto) 9.7 L 15.6 L Bre[place] % (Auto) 3.5 6.1 Eos % (Auto) 0.7 1.4 Baso % (Auto) 0.3 0.2 Neut # 11.2 H 7.1 H Lymph # 1.3 1.5 Bremer # 0.5 0.6 Eos # 0.1 0.1 Baso # 0.0 0.0 Neutrophils % (Manual) 82 H Band Neutrophils % 2 Lymphocytes % (Manual) 10 L Monocytes % (Manual) 4 Eosinophils % (Manual) 2 Toxic Granulation Present Platelet Estimate Normal Hypochromasia (manual) Slight Anisocytosis (manual) Slight Microcytosis (manual) Slight Sodium 141 Potassium 4.0 Chloride 103 Carbon Dioxide 26 Anion Gap 16 BUN 14 Creatinine 0.6 L Est GFR ( Amer) > 60 Est GFR (Non-Af Amer) > 60 Random Glucose 85 Calcium 9.6 Total Bilirubin 0.7 AST 36 ALT 43 Alkaline Phosphatase 175 H Total Protein 7.5 Albumin 3.7 Globulin 3.8 Albumin/Globulin Ratio 1.0 Decision To Admit - . Admitting Physician: Luc Mendez (I Examined Patient at Presentation. Patient with Surgical Site Infection 7 Days Post Section. Plan to Admit for IV Antibiotics. Plan to Check Abdominal Pelvic CT. Patient Stable at This Time. I Discussed Plan with the Patient All Patient Questions Answered.)
[2017-01-15] MEDS ORDERED: Gentamicin 80 mg/2mL Inj. IVPB SCH (22:45)
[2017-01-15] MEDS ORDERED: Oxycodone/Acetaminophen 5/325 mg Tab PO PRN ×2 (22:49→22:50)
--- NOTE | 2017-01-15 23:29 | CT ---
EXAM: CT Abdomen and Pelvis With Intravenous Contrast CLINICAL HISTORY: 26 years old, female; Screening exam; Post surgical status; ; Prior surgery; Surgery date: 3-7 days post-operative; Surgery type: 8 days ago; Additional info: Drainage from incision TECHNIQUE: Axial computed tomography images of the abdomen and pelvis with intravenous contrast. All CT scans at this facility use one or more dose reduction techniques, viz.: automated exposure control; ma/kV adjustment per patient size (including targeted exams where dose is matched to indication; i.e. head); or iterative reconstruction technique. Coronal and sagittal reformatted images were created and reviewed. CONTRAST: 95 mL of omnipaque administered intravenously. COMPARISON: No relevant prior studies available. FINDINGS: Lower thorax: There is minimal bibasilar atelectasis. ABDOMEN: Liver: There are no focal liver lesions present. Gallbladder and bile ducts: The gallbladder is normal. No calcified stones. No ductal dilation. Pancreas: The pancreas is normal. No ductal dilation. Spleen: The spleen is normal. Adrenals: The adrenal glands are normal. Kidneys and ureters: The kidneys are normal. No hydronephrosis. Stomach and bowel: Stomach is decompressed. Colonic constipation is present. There is no evidence of intestinal obstruction. No mucosal thickening. Appendix: No findings to suggest acute appendicitis. PELVIS: Bladder: Bladder is decompressed. Reproductive: 2.6 CM hypodense lesion of the left adnexa may represent complex or hemorrhagic cyst. If indicated, this could be further evaluated with pelvic sonogram. Uterus is enlarged compatible with a post gravid state of the patient. ABDOMEN and PELVIS: Intraperitoneal space: There is no evidence of free intraperitoneal fluid. No free air. Bones/joints: No acute fracture. No dislocation. Soft tissues: There are postoperative changes at the lower anterior abdominal wall compatible with the known history of recent . No evidence for substantial fluid collection in the vicinity. Vasculature: The aorta is normal. No abdominal aortic aneurysm. Lymph nodes: There is no evidence of lymphadenopathy. Other findings: There are a few intraperitoneal gas bubbles compatible with postoperative state of patient. IMPRESSION: 1. 2.6 CM hypodense lesion of the left adnexa may represent complex or hemorrhagic cyst. If indicated, this could be further evaluated with pelvic sonogram. 2. There are postoperative changes at the lower anterior abdominal wall compatible with the known history of recent . No evidence for substantial fluid collection in the vicinity. 3. Additional incidental and/or chronic findings as described.
[2017-01-15] MEDS: Gentamicin 80mg/50ml NS 80 MG/50 ML BAG IVPB SCH (23:52)
[2017-01-16] MEDS: AMPicillin 2 GM in Sodium Chloride 0.9% 100 ML IVPB SCH ×6 (00:59→21:09)
[2017-01-16] MEDS: Gentamicin 80mg/50ml NS 80 MG/50 ML BAG IVPB SCH ×3 (06:30→22:36)
[2017-01-16 07:44] LABS: BASO % 0.2 % (0.0-2.0); EOS # 0.1 K/uL (0.0-0.7); EOS % 1.4 % (0.0-4.0); HEMATOCRIT 34.1 % (34.0-47.0); LYMPH # 1.5 K/uL (1.0-4.3); LYMPH % 15.6 % (20.0-40.0); MEAN CELL VOLUME 83.9 fl (81.0-99.0); MEAN CORPUSCULAR HEMOGLOBIN 27.3 pg (27.0-31.0); MEAN CORPUSCULAR HGB CONC 32.5 g/dL (33.0-37.0); MEAN PLATELET VOLUME 6.6 fl (7.2-11.7); MONO # 0.6 K/uL (0.0-0.8); MONO % 6.1 % (0.0-10.0); NEUT # 7.1 K/uL (1.8-7.0); NEUT % 76.7 % (50.0-75.0); RED CELL DISTRIBUTION WIDTH 15.1 % (11.5-14.5); WHITE BLOOD COUNT 9.3 K/uL (4.8-10.8)
[2017-01-16] MEDS: Lactobacillus Acidophilus 500 MU Cap PO SCH ×2 (09:28→17:29)
--- NOTE | 2017-01-16 20:00 | CP.PCM.PN ---
Subjective - Date & Time of Evaluation Date of Evaluation: 01/16/17 Time of Evaluation: 19:35 - Subjective Subjective: Pt seen and examined at bedside this evening. No events last 24 hrs. Pt reports no pain in the incision site. Pt is tolerating PO well. Had BM and urinating well. Denies nausea, vomiting, fever, chills, abdominal pain, chest pain, dyspnea, headache or dizziness. Objective - Vital Signs/Intake and Output Vital Signs (last 24 hours): Temp Pulse Resp BP Pulse Ox 97.7 F 67 18 109/74 97 01/16/17 16:25 01/16/17 16:25 01/16/17 16:25 01/16/17 16:25 01/16/17 16:25 - Medications Medications: Current Medications Acetaminophen (Tylenol 325mg Tab) 650 mg PO Q6 PRN PRN Reason: Fever >100.4 F Docusate Sodium (Colace) 100 mg PO BID [facility] Last Admin: 01/16/17 17:29 Dose: 100 mg Piperacillin Sod/Tazobactam (Sod 3.375 gm/ Sodium Chloride) 100 mls @ 100 mls/ hr IVPB ONCE [facility] Last Admin: 01/15/17 21:53 Dose: 100 mls/hr Ampicillin 2 gm/ Sodium (Chloride) 100 mls @ 100 mls/hr IVPB Q4 KEV PRN Reason: Protocol Last Admin: 01/16/17 17:29 Dose: 100 mls/hr Gentamicin Sulfate/Sodium Chloride (Gentamicin 80mg/50ml Ns) 80 mg in 50 mls @ 50 mls/hr IVPB Q8H [facility] Last Admin: 01/16/17 14:11 Dose: 50 mls/hr Clindamycin Phosphate 900 mg/ (Sodium Chloride) 106 mls @ 106 mls/hr IVPB Q8 KEV PRN Reason: Protocol Last Admin: 01/16/17 17:29 Dose: 106 mls/hr Ibuprofen (Motrin Tab) 600 mg PO Q8 PRN PRN Reason: Pain, Mild (1-3) Lactobacillus Acidophilus (Bacid Acidophilus) 1 cap PO BID [facility] Last Admin: 01/16/17 17:29 Dose: 1 cap Oxycodone/Acetaminophen (Percocet 5/325 Mg Tab) 1 tab PO Q4 PRN PRN Reason: Pain, moderate (4-7) Stop: 01/18/17 22:50 Oxycodone/Acetaminophen (Percocet 5/325 Mg Tab) 2 tab PO Q6 PRN PRN Reason: Pain, severe (8-10) Stop: 01/18/17 22:51 - Labs Labs: 01/16/17 06:30 01/15/17 21:21 - Constitutional Appears: Non-toxic, No Acute Distress - Head Exam Head Exam: ATRAUMATIC, NORMOCEPHALIC - ENT Exam ENT Exam: Mucous Membranes Moist - Neck Exam Neck Exam: Full ROM, Normal Inspection - Respiratory Exam Respiratory Exam: Clear to Ausculation Bilateral. absent: Rales, Rhonchi, Wheezes - Cardiovascular Exam Cardiovascular Exam: REGULAR RHYTHM, RRR, +S1, +S2. absent: Murmur - GI/Abdominal Exam GI & Abdominal Exam: Soft, Normal Bowel Sounds. absent: Distended, Guarding, Tenderness, Rebound Additional comments: Drainage and erythema have significantly improved on incision site. Dried yellowish discharge seen on the dressing, no active drainage seen. Steri strips are intact. No tenderness, guarding or rebound tenderness. - Extremities Exam Extremities Exam: Normal Capillary Refill, Normal Inspection. absent: Calf Tenderness, Pedal Edema - Neurological Exam Neurological Exam: Alert, Awake, Oriented x3 - Psychiatric Exam Psychiatric exam: Normal Affect, Normal Mood Assessment and Plan - Assessment and Plan (Free Text) Assessment: Assessment: 26 yo s/p on 01/08/17 admitted to [facility] for infected surgical wound w/ drainage. Plan: Continue current abx managements and anticipate discharge home tomorrow w / PO abx. Infected surgical wound w/ drainage -Continue ampicillin 2 gm IVP q4hrs -Continue gentamicin 80mg/50mls IVPB Q8hrs -Continue clindamycin 900mg IVPB Q8rhs -Received 1 dose of zosyn 3.75gm in ED -WBC trending down -CBC: 9.3>11.1/34.1<354 -Afebrile w/ stable vitals. -CT of abdomen and pelvis: - 2.6 cm hypodense lesion of the left adnexa may represent complex or hemorrhagic cyst. If indicated, this could be further evaluated with pelvic sonogram. -There are postoperative changes at the lower anterior abdominal wall compatible with the known hx of recent . No evidence for substantial fluid collection in the vicinity. -F/U blood cx and wound cx sent -Lactic acid 1.0 -Procalcitonin 0.08 -Pain management w/ ibuprofen and percocet DVT prophylaxis: -SCD'S Diet: Regular diet. Disposition: Anticipate discharge to home tomorrow w/ PO abx. Case d/w on-call OB hospitalist Dr. Sergio Davey, PGY1
[2017-01-17] MEDS: AMPicillin 2 GM in Sodium Chloride 0.9% 100 ML IVPB SCH ×3 (01:41→09:47)
[2017-01-17] MEDS: Gentamicin 80mg/50ml NS 80 MG/50 ML BAG IVPB SCH (06:25)
[2017-01-17 07:53] VITALS: BP 97/64; PULSE 62; RESP 18; TEMP 97.7; O2SAT 100
[2017-01-17] MEDS: Lactobacillus Acidophilus 500 MU Cap PO SCH (08:49)
--- NOTE | 2017-01-17 11:25 | CP.PCM.DIS ---
Provider - Provider Date of Admission: 01/15/17 21:27 Attending physician: Luc Mendez MD Primary care physician: [facility]. Consults: [employer]-Dr Mendez, Dr Hill and Dr Conroy. Time Spent in preparation of Discharge (in minutes): 30 Hospital Course - Lab Results Lab Results: Micro Results 01/15/17 21:21 Incision Site Gram Stain - Final 01/15/17 21:21 Incision Site Wound Culture - Preliminary Gram Negative Jesse 01/15/17 21:21 Blood Blood Culture - Preliminary NO GROWTH AFTER 24 HOURS Most Recent Lab Values WBC 9.3 K/uL (4.8-10.8) 01/16/17 06:30 RBC 4.06 Mil/uL (3.80-5.20) 01/16/17 06:30 Hgb 11.1 g/dL (12.0-16.0) L 01/16/17 06:30 Hct 34.1 % (34.0-47.0) 01/16/17 06:30 MCV 83.9 fl (81.0-99.0) 01/16/17 06:30 MCH 27.3 pg (27.0-31.0) 01/16/17 06:30 MCHC 32.5 g/dL (33.0-37.0) L 01/16/17 06:30 RDW 15.1 % (11.5-14.5) H 01/16/17 06:30 Plt Count 354 K/uL (130-400) 01/16/17 06:30 MPV 6.6 fl (7.2-11.7) L 01/16/17 06:30 Neut % (Auto) 76.7 % (50.0-75.0) H 01/16/17 06:30 Lymph % (Auto) 15.6 % (20.0-40.0) L 01/16/17 06:30 Willacy % (Auto) 6.1 % (0.0-10.0) 01/16/17 06:30 Eos % (Auto) 1.4 % (0.0-4.0) 01/16/17 06:30 Baso % (Auto) 0.2 % (0.0-2.0) 01/16/17 06:30 Neut # 7.1 K/uL (1.8-7.0) H 01/16/17 06:30 Lymph # 1.5 K/uL (1.0-4.3) 01/16/17 06:30 Willacy # 0.6 K/uL (0.0-0.8) 01/16/17 06:30 Eos # 0.1 K/uL (0.0-0.7) 01/16/17 06:30 Baso # 0.0 K/uL (0.0-0.2) 01/16/17 06:30 Neutrophils % (Manual) 82 % (42-75) H 01/15/17 21:21 Band Neutrophils % 2 % (0-2) 01/15/17 21:21 Lymphocytes % (Manual) 10 % (20-50) L 01/15/17 21:21 Monocytes % (Manual) 4 % (0-10) 01/15/17 21:21 Eosinophils % (Manual) 2 % (0-7) 01/15/17 21:21 Toxic Granulation Present 01/15/17 21:21 Platelet Estimate Normal (NORMAL) 01/15/17 21:21 Hypochromasia (manual) Slight 01/15/17 21:21 Anisocytosis (manual) Slight 01/15/17 21:21 Microcytosis (manual) Slight 01/15/17 21:21 Sodium 141 mmol/l (132-148) 01/15/17 21:21 Potassium 4.0 MMOL/L (3.6-5.0) 01/15/17 21:21 Chloride 103 mmol/L (98-107) 01/15/17 21:21 Carbon Dioxide 26 mmol/L (22-30) 01/15/17 21:21 Anion Gap 16 (10-20) 01/15/17 21:21 BUN 14 mg/dl (7-17) 01/15/17 21:21 Creatinine 0.6 mg/dl (0.7-1.2) L 01/15/17 21:21 Est GFR ( Amer) > 60 01/15/17 21:21 Est GFR (Non-Af Amer) > 60 01/15/17 21:21 Random Glucose 85 mg/dL (65-105) 01/15/17 21:21 Lactic Acid 1.0 MMOL/L (0.7-2.1) 01/16/17 18:48 Calcium 9.6 mg/dL (8.4-10.2) 01/15/17 21:21 Total Bilirubin 0.7 mg/dl (0.2-1.3) 01/15/17 21:21 AST 36 U/L (14-36) 01/15/17 21:21 ALT 43 U/L (9-52) 01/15/17 21:21 Alkaline Phosphatase 175 U/L (38-126) H 01/15/17 21:21 Total Protein 7.5 G/DL (6.3-8.2) 01/15/17 21:21 Albumin 3.7 g/dL (3.5-5.0) 01/15/17 21:21 Globulin 3.8 gm/dL (2.2-3.9) 01/15/17 21:21 Albumin/Globulin Ratio 1.0 (1.0-2.1) 01/15/17 21:21 Procalcitonin 0.08 NG/ML (0.19-0.49) L 01/15/17 21:20 - Hospital Course Hospital Course: 26 y/o F s/p (01/08/17) was admitted due to surgical wound infection on 01/15/17. Pt was initiated on IV Ampicillin, IV Gentamicin and IV Clindamycin. CT scan on 01/15 was unremarkable with NO fluid collection. Blood culture with NO growth in 24 hours and surgical wound culture showed few gram negative rods. Pt always remained afebrile and tolerating PO. Pt discharged today 01/17/17, after wound care was provided and healing packing strip inserted into surgical incision's small opening. PO Bactrim DS at home. Pt will return to ER tomorrow for wound care and on Thursday to [facility] clinic for proper wound care. - Date & Time of H&P Date of H&P: 01/15/17 Time of H&P: 22:35 Discharge Exam - Head Exam Head Exam: ATRAUMATIC, NORMOCEPHALIC - Eye Exam Eye Exam: EOMI, PERRL Pupil Exam: PERRL - Neck Exam Neck exam: Full Rom - Respiratory Exam Respiratory Exam: NORMAL BREATHING PATTERN - GI/Abdominal Exam GI & Abdominal Exam: Normal Bowel Sounds, Soft. absent: Distended, Guarding, Organomegaly Additional comments: Uterine fundus bellow umbilicus. Surgical incision was clean, almost completely closed with exception of right lateral side , ~2cm openning with scant white- yellowish material present on dressing and wound. - Extremities Exam Extremities exam: full ROM, normal inspection Discharge Plan - Discharge Medications Prescriptions: Sulfamethoxazole/Trimethoprim [Bactrim DS 800 mg-160 mg] 1 tab PO BID 7 Days # 14 tab - Follow Up Plan Condition: FAIR Disposition: HOME/ ROUTINE Instructions: Wound Infection (GEN), Wound Healing and Your Diet (DC) Additional Instructions: - Keep wound dry, continue with daily activities at a slow pace and do not make precipitous movements. - Please start prescribed antibiotics, twice a day, for 7 days. - Return to ER tomorrow for wound care, dressing and packing change. - Please go to your clinic on Thursday for wound care. - F/U with PMD on ThursdayJan 21 at 8 am. - Por favor, mantenga la herida seca y en buen estado. Realize ignacio actividades diarias con mucho cuidado sin hacer esfuerzos precipitosos. - Empieze antibioticos, dos veces al alonso, por un total de 7 christie. - Retorne a la tre de emergencias manana para cuidados de herida. - Vaya a oates clinica el lunes para cuidados de herida. - Acuda a oates howard el miercoles Diciembre 13 a las 8 am.
== END 2017-01-17 12:25 | disposition home or self-care (01) | DRG 376 ==
LOC: H.ER 19:52 → H.ERHOLD 21:27 → H.MEDSURG1 23:04
PROVIDERS: ADMIT Obstetrics & Gynecology; ATTEND Obstetrics & Gynecology
DX: O86.0 Infection of obstetric surgical wound (principal); B96.20 Unspecified Escherichia coli [E. coli] as the cause of diseases classified elsewhere

== ENCOUNTER 2017-01-18 14:02 | Emergency (ER) | payer SELFPAY ==
[2017-01-18 14:02] VITALS: BMI 34.2
[2017-01-18 14:12] VITALS: BP 110/66; PULSE 75; RESP 16; TEMP 97; O2SAT 98
--- NOTE | 2017-01-18 14:16 | ED PDOC ---
HPI: Wound Care - HPI Time Seen by Provider: 01/18/17 14:07 Chief Complaint (Nursing): Wound Check Chief Complaint (Provider): Woud care History Per: Patient Additional Complaint(s): 26 y/o F s/p (01/08/17) was admitted due to surgical wound infection on 01/15/17. Pt was initiated on IV Ampicillin, IV Gentamicin and IV Clindamycin. CT scan on 01/15 was unremarkable with NO fluid collection. Blood culture with NO growth in 24 hours and surgical wound culture showed few gram negative rods. Pt always remained afebrile and tolerating PO. Pt discharged on 01/17/17, after wound care was provided and healing packing strip inserted into surgical incision's small opening. PO Bactrim DS at home. Pt will return to ER tomorrow for wound care and on Thursday to [facility] clinic for proper wound care. Past Medical History Vital Signs: Last Vital Signs Temp 97.0 F L 01/18/17 14:03 Pulse 75 01/18/17 14:03 Resp 16 01/18/17 14:03 BP 110/66 01/18/17 14:03 Pulse Ox 98 01/18/17 14:03 - Medical History PMH: Denies: Depression, Diabetes, HTN, Chronic Kidney Disease - Surgical History Surgical History: - Family History Family History: States: Unknown Family Hx - Immunization History Hx Tetanus Toxoid Vaccination: No Hx Influenza Vaccination: No Hx Pneumococcal Vaccination: No - Home Medications Home Medications: Ambulatory Orders Medication Instructions Recorded Ibuprofen [Motrin Tab] 600 mg PO Q6 PRN #30 tab 01/11/17 Sennosides A and B [Senokot Tab] 17.2 mg PO HS #20 tab 01/11/17 oxyCODONE/Acetaminophen [Percocet 1 ea PO Q6 PRN #15 tab 01/11/17 5/325 mg Tab] Acetaminophen [Tylenol 325mg tab] 650 mg PO Q6 PRN tab 01/17/17 Docusate [Colace] 100 mg PO BID cap 01/17/17 Ibuprofen [Motrin Tab] 600 mg PO Q8 PRN tab 01/17/17 Lactobacillus Acidophilus [Bacid 1 cap PO BID cap 01/17/17 Acidophilus] Sulfamethoxazole/Trimethoprim 1 tab PO BID 7 Days #14 tab 01/17/17 [Bactrim DS 800 mg-160 mg] - Allergies Allergies/Adverse Reactions: Allergies Allergy/AdvReac Type Severity Reaction Status Date / Time No Known Allergies Allergy Verified 01/15/17 20:05 Physical Exam - Reviewed Nursing Documentation Reviewed: Yes Vital Signs Reviewed: Yes - Physical Exam Appears: Positive for: Well, Non-toxic, No Acute Distress Gastrointestinal/Abdominal: Positive for: Other ( incision site packing in place with absence of drainage). Negative for: Tenderness (or erythema on incision site) Pelvic Exam: Negative for: Active Bleeding (or drainage ) - ECG O2 Sat by Pulse Oximetry: 98 (RA) Pulse Ox Interpretation: Normal Medical Decision Making Medical Decision Making: Time: 1530 --Spoke to OB resident. Advised to remove and repack surgical site with bandages. --Patient to follow-up in clinic tomorrow. Scribe Attestation: Documented by Pascale Sandhu, acting as a scribe for Sameera Valladares Provider Scribe Attestation: All medical record entries made by the Scribe were at my direction and personally dictated by me. I have reviewed the chart and agree that the record accurately reflects my personal performance of the history, physical exam, medical decision making, and the department course for this patient. I have also personally directed, reviewed, and agree with the discharge instructions and disposition. Disposition - Clinical Impression Clinical Impression: Surgical site infection - Patient ED Disposition Is Patient to be Admitted: No - Disposition Disposition: Routine/Home Disposition Time: 15:59 Condition: STABLE Instructions: Surgical Site Infections (ED) Forms: [employer] (Lithuanian) Print Language: [place] ISLAND[place]
== END 2017-01-18 15:47 | disposition home or self-care (01) ==
LOC: H.ER 14:02
DX: T81.4XXA Infection following a procedure, initial encounter (principal)

== ENCOUNTER 2018-02-14 15:20 | Emergency (ER) | payer SELFPAY ==
[2018-02-14 15:20] VITALS: BMI 34.2
[2018-02-14 15:30] VITALS: TEMP 97.8; O2SAT 100
[2018-02-14] MEDS ORDERED: Sodium Chloride 0.9% 1,000 ML IV STA (16:02)
--- NOTE | 2018-02-14 16:44 | ED PDOC ---
HPI: Headache Time Seen by Provider: 02/14/18 15:53 Chief Complaint (Nursing): Headache Chief Complaint (Provider): Headache History Per: Patient History/Exam Limitations: no limitations Onset/Duration Of Symptoms: Persistent (x2 weeks) Current Symptoms Are (Timing): Still Present Additional Complaint(s): 27 year old female with no significant pmHx, presents to ED with a complaint of a "nagging headache" associated with nausea for 2 weeks. She reports no alleviating or exacerbating factors and has been limited to using Tylenol for relief as she is currently breast-feeding her child. Otherwise, patient denies vomiting, head trauma, neck pain, fever, or chills. PCP: Dr. Traci Longoria Past Medical History Reviewed: Historical Data, Nursing Documentation, Vital Signs Vital Signs: Last Vital Signs Temp 97.8 F 02/14/18 15:26 Pulse 92 H 02/14/18 15:26 Resp 19 02/14/18 15:26 BP 100/60 02/14/18 15:26 Pulse Ox 100 02/14/18 15:26 - Medical History PMH: No Chronic Diseases Denies: Depression, Diabetes, HTN, Chronic Kidney Disease - Surgical History Surgical History: - Family History Family History: States: Unknown Family Hx - Immunization History Hx Tetanus Toxoid Vaccination: No Hx Influenza Vaccination: No Hx Pneumococcal Vaccination: No - Home Medications Home Medications: Ambulatory Orders Medication Instructions Recorded Ibuprofen [Motrin Tab] 600 mg PO Q6 PRN #30 tab 01/11/17 Sennosides A and B [Senokot Tab] 17.2 mg PO HS #20 tab 01/11/17 oxyCODONE/Acetaminophen [Percocet 1 ea PO Q6 PRN #15 tab 01/11/17 5/325 mg Tab] Acetaminophen [Tylenol 325mg tab] 650 mg PO Q6 PRN tab 01/17/17 Docusate [Colace] 100 mg PO BID cap 01/17/17 Ibuprofen [Motrin Tab] 600 mg PO Q8 PRN tab 01/17/17 Lactobacillus Acidophilus [Bacid 1 cap PO BID cap 01/17/17 Acidophilus] Sulfamethoxazole/Trimethoprim 1 tab PO BID 7 Days #14 tab 01/17/17 [Bactrim DS 800 mg-160 mg] - Allergies Allergies/Adverse Reactions: Allergies Allergy/AdvReac Type Severity Reaction Status Date / Time No Known Allergies Allergy Verified 01/15/17 20:05 Review of Systems ROS Statement: Except As Marked, All Systems Reviewed And Found Negative Constitutional: Negative for: Fever, Chills Gastrointestinal: Positive for: Nausea. Negative for: Vomiting Musculoskeletal: Negative for: Neck Pain Neurological: Positive for: Headache Physical Exam - Reviewed Nursing Documentation Reviewed: Yes Vital Signs Reviewed: Yes - Physical Exam Appears: Positive for: Non-toxic, No Acute Distress Head Exam: Positive for: ATRAUMATIC, NORMAL INSPECTION, NORMOCEPHALIC Skin: Positive for: Normal Color Eye Exam: Positive for: Normal appearance, EOMI, PERRL ENT: Positive for: Normal ENT Inspection, TM Is/Are (clear. nonbulging and nonerythematous bilaterally). Negative for: Nasal Congestion, Pharyngeal Erythema Neck: Positive for: Normal, Painless ROM, Supple Cardiovascular/Chest: Positive for: Regular Rate, Rhythm Respiratory: Positive for: Normal Breath Sounds Gastrointestinal/Abdominal: Positive for: Normal Exam Back: Positive for: Normal Inspection Extremity: Positive for: Normal ROM (upper/lower) Neurologic/Psych: Positive for: Alert, senior software developer II-XII (grossly intact), Oriented (x3), Gait (steady). Negative for: Motor/Sensory Deficits, Aphasia - ECG O2 Sat by Pulse Oximetry: 100 (RA) Pulse Ox Interpretation: Normal Medical Decision Making Medical Decision Making: Time: 1600 Initial Plan: work up for headache. Will consider conservative approach with IV medications. No indication for CT at this time due to mild presentation and negative neurological deficits. * IV fluids * Toradol 30mg IVP * Reglan 10mg IVP 1700 MAYS resolved with reglan and IV hydration. D/C home and follow up with PMD. Scribe Attestation: Documented by Pascale Sandhu, acting as a scribe for Elizabeth Ballard MD. Provider Scribe Attestation: All medical record entries made by the Scribe were at my direction and personally dictated by me. I have reviewed the chart and agree that the record accurately reflects my personal performance of the history, physical exam, medical decision making, and the department course for this patient. I have also personally directed, reviewed, and agree with the discharge instructions and disposition. Disposition - Clinical Impression Clinical Impression: Headache - Disposition Disposition: Routine/Home Disposition Time: 17:07 Condition: IMPROVED Additional Instructions: Increase water intake to prevent dehydration. Take Tylenol for headache. follow up with primary medical doctor if headache returns or come back to the emergency department. Forms: [employer] (Danish)
[2018-02-14 17:39] VITALS: BP 113/72; PULSE 90; RESP 15
== END 2018-02-14 17:39 | disposition home or self-care (01) ==
LOC: H.ER 15:20
DX: R51 Headache (principal)
CPT/HCPCS: 81025; 82948; 96374; 99285; J2765; J7030